=== PATIENT | female | born 1950 | race Caucasian/White ===

== ENCOUNTER 2023-11-30 03:46 | Inpatient (IN) | payer MEDICARE, SELFPAY ==
[2023-11-30] VITALS (105 sets, daily range): BP systolic 99–185; BP diastolic 61–113; PULSE 85–119; RESP 12–36; TEMP 36.4–37.9; O2SAT 83–100; BMI 22.8
--- NOTE | 2023-11-30 03:47 | XRR_ITS ---
PROCEDURE INFORMATION: Exam: XR Chest Exam date and time: 11/30/2023 3:58 AM Age: 73 years old Clinical indication: Cough and fever; Additional info: Fever, cough TECHNIQUE: Imaging protocol: Radiologic exam of the chest. Views: 1 view. COMPARISON: No relevant prior studies available. FINDINGS: Lungs: Unremarkable. No consolidation. Pleural spaces: Unremarkable. No pleural effusion. No pneumothorax. Heart/Mediastinum: Unremarkable. No cardiomegaly. Bones/joints: Unremarkable. XR/XR chest 1V portable [id number] IMPRESSION: No acute findings.
--- NOTE | 2023-11-30 03:50 | ED_ITS ---
Documented by User: Esperanza Talavera MD 11/30/23 04:53 HPI - SOB/Dyspnea 2 General: Chief Complaint: Nausea/Vomiting/Diarrhea Stated Complaint: N/V/FEVER Time Seen by Provider: 11/30/23 03:47 History of Present Illness: HPI Narrative: 73-year-old female presents emergency ro om from half-way. Apparently she been coughing and having some nausea and vomiting today. There is report of fever. She has been short of breath. She is coughing on presentation. She seems slightly confused. Related Data Home Medications Medication Instructions Recorded Confirmed albuterol sulfate 90 mcg/actuation 90 mcg inhalation PRN 11/30/23 11/30/23 aerosol inhaler esomeprazole magnesium 40 mg 40 mg PO DAILY 11/30/23 11/30/23 capsule,delayed release tizanidine 2 mg tablet 2 mg PO TID 11/30/23 11/30/23 Allergies Allergy/AdvReac Type Severity Reaction Status Date / Time No Known Allergies Allergy Verified 11/30/23 03:52 Review of Systems 2 Narrative: Constitutional symptoms: Negative except as documented in HPI. Skin symptoms: Negative except as documented in HPI. Eye symptoms: Negative except as documented in HPI. ENMT symptoms: Negative except as documented in HPI. Respiratory symptoms: Negative except as documented in HPI. Cardiovascular symptoms: Negative except as documented in HPI. Gastrointestinal symptoms: Negative except as documented in HPI. Genitourinary symptoms: Negative except as documented in HPI. Musculoskeletal symptoms: Negative except as documented in HPI. Neurologic symptoms: Negative except as documented in HPI. Psychiatric symptoms: Negative except as documented in HPI. Endocrine symptoms: Negative except as documented in HPI. Physical Exam 2 Narrative: EXAM NARRATIVE: General: Patient is a bit somnolent and slightly confused. Skin: Warm, dry. Head: Normocephalic, atraumatic. Neck: Supple, trachea midline. Eye: Extraocular movements are intact. Ears, nose, mouth and throat: mucosa moist. Cardiovascular: Regular, Normal peripheral perfusion. Respiratory: Lungs are clear to auscultation, respirations are non-labored, breath sounds are equal, Symmetrical chest wall expansion. Gastrointestinal: Soft, Nontender, Non distended Musculoskeletal: Normal ROM, no deformity. Neurological: Somnolent, No focal neurological deficit observed. Psychiatric: Unable to assess. Slightly confused. Course 2 Vital Signs: Vital signs: Vital Signs Temperature 97.6 F 11/30/23 03:47 Pulse Rate 91 11/30/23 07:12 Respiratory Rate 18 11/30/23 03:47 Blood Pressure 161/65 11/30/23 07:12 Pulse Oximetry 93 11/30/23 07:12 Oxygen Delivery Me thod Room Air 11/30/23 05:45 MDM - SOB/Dyspnea Medical Decision Making Medical decision making: Differential diagnosis for patient presenting with generalized weakness and altered mental status including but not limited to and based on the above HPI, review of systems and physical exam: Sepsis. Dehydration. Renal failure. Electrolyte abnormalities. Anemia. Congestive heart failure. Hypotension. Coronary syndrome. Hepatitis. Cirrhosis. Infections such as pneumonia, urinary tract infection, Tick bourne illness, Cellulitis, Viral infections including influenza and Covid-19. Workup: labwork and lab/exam driven imaging ordered to evaluate, rule in and rule out above pathologies. Chest x-ray: Slightly hyperexpanded and a little bit rotated but I do not see any obvious focal infiltrates. This was reviewed and interpreted by myself the emergency room physician. CT head: No acute intracranial process. no intracranial hemorrhage, no evidence of infarct. no evidence of acute fracture.This was reviewed and interpreted by myself the ER physician. Lab Review: Laboratory results were reviewed and interpreted by myself the emergency room physician. Slightly leukopenic with white count 3. Hemoglobin is 12. Platelets are little low at 82 as well. No renal failure. BUN/creatinine are 14 and 0.6. Lipase is normal at 41. Patient does have a urinary tract infection. 2 L normal saline bolus and IV Rocephin in the emergency room. IV Zofran as well. Patient care transitioned to Dr. Hayes at shift change. Lab Data 11/30/23 04:06 11/30/23 04:06 Labs/Radiology: Radiology Impressions Chest X-Ray 11/30/23 03:47 IMPRESSION: No acute findings. Head CT 11/30/23 03:58 IMPRESSION: 1. No acute intracranial findings. 2. Scattered white matter disease, likely secondary to chronic microvascular change. 3. Incidental findings as above. Abdomen/Pelvis CT 11/30/23 04:52 IMPRESSION: 1. Severe colonic stool burden, correlate with constipation. 2. Otherwise, no acute abdominal findings. 3. Findings compatible with cirrhosis and portal hypertension, status post tips (difficult to comment on the patency of the shunt). COMMENTS: Consistent with the [employer]'s Incidental Findings Committee white paper (J [employer] [facility] [employer]iol 2018): Any incidental renal lesion less than 1 cm or classified as too small to characterize, or any incidental cystic renal lesion characterized as simple-appearing, is likely benign. No follow-up imaging is recommended for these lesions per consensus recommendations based on imaging criteria. Laboratory Results WBC 3.17 10^3/uL (3.29-11.43) L 11/30/23 04:06 RBC 3.61 10^6/uL (3.85-5.65) L 11/30/23 04:06 Hgb 12.70 g/dL (11.27-16.99) 11/30/23 04:06 Hct 36.5 % (36-47) 11/30/23 04:06 MCV 101.1 fl (85-98) H 11/30/23 04:06 MCH 35.2 pg (27-33) H 11/30/23 04:06 MCHC 34.8 g/dL (30-55) 11/30/23 04:06 RDW 13.8 % (12.1-15.1) 11/30/23 04:06 Plt Count 82 10^3/cmm (157-399) L 11/30/23 04:06 MPV 10.0 fL (7.4-10.4) 11/30/23 04:06 Neut % (Auto) 53.6 % 11/30/23 04:06 Lymph % (Auto) 28.7 % 11/30/23 04:06 [place] % (Auto) 11.4 % 11/30/23 04:06 Eos % (Auto) 5.7 % 11/30/23 04:06 Baso % (Auto) 0.3 % 11/30/23 04:06 Neut # (Auto) 1.70 10^3/uL (1.8-7.7) L 11/30/23 04:06 Lymph # (Auto) 0.9 10^3/uL (0.8-4.8) 11/30/23 04:06 [place] # (Auto) 0.4 10^3/uL (0.2-0.9) 11/30/23 04:06 Eos # (Auto) 0.2 10^3/uL (0.0-0.8) 11/30/23 04:06 Baso # (Auto) 0.0 10^3/uL (0.0-0.1) 11/30/23 04:06 Nucleated RBC % (auto) 0 % 11/30/23 04:06 Nucleated RBCs # 0.0 /100WBC 11/30/23 04:06 Specimen Type Arterial 11/30/23 04:04 Sample Site Radial, right 11/30/23 04:04 ABG pH 7.45 (7.35-7.45) 11/30/23 04:04 ABG pCO2 27.8 mmHg (35-45) L 11/30/23 04:04 ABG pO2 68.5 mmHg (80.0-100.0) L 11/30/23 04:04 ABG HCO3 19.5 mmol/L (22-26) L 11/30/23 04:04 ABG O2 Saturation 95.2 11/30/23 04:04 ABG Base Excess -3.2 mmol/L (-2.0-2.0) L 11/30/23 04:04 Alban Test Pos 11/30/23 04:04 A-a O2 Gradient 5.9 mmHg (5-10) 11/30/23 04:04 Hematocrit 37.6 % (37-47) 11/30/23 04:04 Hgb O2 Saturation 93.3 % (95-100) L 11/30/23 04:04 Carboxyhemoglobin 2.0 %THgb (0.4-20.1) 11/30/23 04:04 Methemoglobin 0.0 % (0.4-1.5) L 11/30/23 04:04 Total Hemoglobin 12.3 g/dL (12-16) 11/30/23 04:04 Sodium 147.0 mmol/L (131-143) H 11/30/23 04:04 Potassium 4.0 mmol/L (3.5-5.0) 11/30/23 04:04 Glucose 109.0 mg/dL (70-115) 11/30/23 04:04 Ionized Calcium 1.3 mmol/L (1.1-1.4) 11/30/23 04:04 O2 Delivery Device None 11/30/23 04:04 Tire Tester ID Cl 11/30/23 04:04 Sodium 143 mmol/L (136-145) 11/30/23 04:06 Potassium 4.3 mmol/L (3.5-5.1) 11/30/23 04:06 Chloride 112 mmol/L (98-107) H 11/30/23 04:06 Carbon Dioxide 19 mmol/L (22-29) L 11/30/23 04:06 Anion Gap 16.3 (5-19) 11/30/23 04:06 BUN 14 mg/dL (8-23) 11/30/23 04:06 Creatinine 0.6 mg/dL (0.5-0.9) 11/30/23 04:06 GFR Calculation Not Reportable 11/30/23 04:06 Glucose 109 mg/dL (65-115) 11/30/23 04:06 Calculated Osmolality 297 mOsm/kg (285-295) H 11/30/23 04:06 Lactic Acid 1.7 mmol/L (0.5-2.2) 11/30/23 04:06 Calcium 9.8 mg/dL (8.5-10.5) 11/30/23 04:06 Total Bilirubin 2.8 mg/dL (0.15-1.2) H 11/30/23 04:06 AST 24 U/L (0-32) 11/30/23 04:06 ALT 14 U/L (0-33) 11/30/23 04:06 Alkaline Phosphatase 56 U/L (35-105) 11/30/23 04:06 Ammonia 141 umol/L (11-51) H 11/30/23 07:11 C-Reactive Protein 3.0 mg/L (0.0-4.9) 11/30/23 04:06 Total Protein 6.9 g/dL (6.6-8.7) 11/30/23 04:06 Albumin 3.8 g/dL (3.5-5.2) 11/30/23 04:06 Globulin 3.1 g/dL (1.3-4.6) 11/30/23 04:06 Lipase 41 U/L (13-60) 11/30/23 04:06 Procalcitonin 0.07 ng/mL (0-0.5) 11/30/23 04:06 Urine Color Dark yellow (Yellow) A 11/30/23 04:18 Urine Appearance Cloudy (CLEAR) A 11/30/23 04:18 Urine pH 7.5 (5-7) 11/30/23 04:18 Ur Specific [place] 1.025 (1.005-1.030) 11/30/23 04:18 Urine Protein Trace (Negative) A 11/30/23 04:18 Urine Glucose (UA) Negative (Normal) 11/30/23 04:18 Urine Ketones Trace (Negative) 11/30/23 04:18 Urine Blood Negative (Negative) 11/30/23 04:18 Urine Nitrate Negative (Negative) 11/30/23 04:18 Urine Bilirubin 1+ (Negative) H 11/30/23 04:18 Urine Urobilinogen 4.0 mg/dL (Negative) H 11/30/23 04:18 Ur Leukocyte Esterase 1+ (Negative) A 11/30/23 04:18 Urine RBC 11-20 /hpf (0-2) H 11/30/23 04:18 Urine WBC 21-50 /hpf (0-5) H 11/30/23 04:18 Ur Squamous Epith Cells 11-20 /hpf (0-5) 11/30/23 04:18 Amorphous Sediment Not Reportable 11/30/23 04:18 Urine Bacteria 2+ /hpf (NONE) H 11/30/23 04:18 Hyaline Casts 2.46 /lpf 11/30/23 04:18 Coronavirus (PCR) Negative (Negative) 11/30/23 04:06 Influenza A (PCR) Negative (Negative) 11/30/23 04:06 Influenza Type B (PCR) Negative (Negative) 11/30/23 04:06 RSV (PCR) Negative (Negative) 11/30/23 04:06 Discharge Plan Discharge Patient Disposition: Admitted As Inpatient Clinical Impression: Acute hepatic encephalopathy, Cystitis Condition: Stable Prescriptions: No Action tizanidine 2 mg Tablet 2 mg PO TID albuterol sulfate 90 mcg/actuation HFA aerosol inhaler 90 mcg INHALATION PRN esomeprazole magnesium 40 mg Capsule,Delayed Release(Dr/Ec) 40 mg PO DAILY Sign Out Sign Out Data: Patient Sign Out occurred on 11/30/23 at 05:03. Patient's care was discussed, and care was transferred from Esperanza Talavera MD to Johnny Hayes DO. Coding Level of Care Code ED Film Editor for Chg Fwd Documented by User: Johnny Hayes DO 11/30/23 09:11 HPI - SOB/Dyspnea 2 General: Chief Complaint: Nausea/Vomiting/Diarrhea Stated Complaint: N/V/FEVER Time Seen by Provider: 11/30/23 03:47 Related Data Home Medications Medication Instructions Recorded Confirmed albuterol sulfate 90 mcg/actuation 90 mcg inhalation PRN 11/30/23 11/30/23 aerosol inhaler esomeprazole magnesium 40 mg 40 mg PO DAILY 11/30/23 11/30/23 capsule,delayed release tizanidine 2 mg tablet 2 mg PO TID 11/30/23 11/30/23 Allergies Allergy/AdvReac Type Severity Reaction Status Date / Time No Known Allergies Allergy Verified 11/30/23 03:52 Course 2 Vital Signs: Vital signs: Vital Signs Temperature 97.6 F 11/30/23 03:47 Pulse Rate 91 11/30/23 07:12 Respiratory Rate 18 11/30/23 03:47 Blood Pressure 161/65 11/30/23 07:12 Pulse Oximetry 93 11/30/23 07:12 Oxygen Delivery Me thod Room Air 11/30/23 05:45 MDM - SOB/Dyspnea Medical Decision Making Medical decision making: Differential diagnosis for patient presenting with generalized weakness and altered mental status including but not limited to and based on the above HPI, review of systems and physical exam: Sepsis. Dehydration. Renal failure. Electrolyte abnormalities. Anemia. Congestive heart failure. Hypotension. Coronary syndrome. Hepatitis. Cirrhosis. Infections such as pneumonia, urinary tract infection, Tick bourne illness, Cellulitis, Viral infections including influenza and Covid-19. Workup: labwork and lab/exam driven imaging ordered to evaluate, rule in and rule out above pathologies. Chest x-ray: Slightly hyperexpanded and a little bit rotated but I do not see any obvious focal infiltrates. This was reviewed and interpreted by myself the emergency room physician. CT head: No acute intracranial process. no intracranial hemorrhage, no evidence of infarct. no evidence of acute fracture.This was reviewed and interpreted by myself the ER physician. Lab Review: Laboratory results were reviewed and interpreted by myself the emergency room physician. Slightly leukopenic with white count 3. Hemoglobin is 12. Platelets are little low at 82 as well. No renal failure. BUN/creatinine are 14 and 0.6. Lipase is normal at 41. Patient does have a urinary tract infection. 2 L normal saline bolus and IV Rocephin in the emergency room. IV Zofran as well. Patient care transitioned to Dr. Hayes at shift change. Care assumed at change of shift. Labs and imaging reviewed. Patient has cystitis that is encephalopathic with an elevated ammonia level and constipation suspect she has not had her lactulose for several days. Discussed Dr. Nicolas will admit cultures have been done antibiotics started. Lab Data 11/30/23 04:06 11/30/23 04:06 Labs/Radiology: Radiology Impressions Chest X-Ray 11/30/23 03:47 IMPRESSION: No acute findings. Head CT 11/30/23 03:58 IMPRESSION: 1. No acute intracranial findings. 2. Scattered white matter disease, likely secondary to chronic microvascular change. 3. Incidental findings as above. Abdomen/Pelvis CT 11/30/23 04:52 IMPRESSION: 1. Severe colonic stool burden, correlate with constipation. 2. Otherwise, no acute abdominal findings. 3. Findings compatible with cirrhosis and portal hypertension, status post tips (difficult to comment on the patency of the shunt). COMMENTS: Consistent with the [employer]'s Incidental Findings Committee white paper (J [employer] [facility] [employer]iol 2018): Any incidental renal lesion less than 1 cm or classified as too small to characterize, or any incidental cystic renal lesion characterized as simple-appearing, is likely benign. No follow-up imaging is recommended for these lesions per consensus recommendations based on imaging criteria. Laboratory Results WBC 3.17 10^3/uL (3.29-11.43) L 11/30/23 04:06 RBC 3.61 10^6/uL (3.85-5.65) L 11/30/23 04:06 Hgb 12.70 g/dL (11.27-16.99) 11/30/23 04:06 Hct 36.5 % (36-47) 11/30/23 04:06 MCV 101.1 fl (85-98) H 11/30/23 04:06 MCH 35.2 pg (27-33) H 11/30/23 04:06 MCHC 34.8 g/dL (30-55) 11/30/23 04:06 RDW 13.8 % (12.1-15.1) 11/30/23 04:06 Plt Count 82 10^3/cmm (157-399) L 11/30/23 04:06 MPV 10.0 fL (7.4-10.4) 11/30/23 04:06 Neut % (Auto) 53.6 % 11/30/23 04:06 Lymph % (Auto) 28.7 % 11/30/23 04:06 [place] % (Auto) 11.4 % 11/30/23 04:06 Eos % (Auto) 5.7 % 11/30/23 04:06 Baso % (Auto) 0.3 % 11/30/23 04:06 Neut # (Auto) 1.70 10^3/uL (1.8-7.7) L 11/30/23 04:06 Lymph # (Auto) 0.9 10^3/uL (0.8-4.8) 11/30/23 04:06 [place] # (Auto) 0.4 10^3/uL (0.2-0.9) 11/30/23 04:06 Eos # (Auto) 0.2 10^3/uL (0.0-0.8) 11/30/23 04:06 Baso # (Auto) 0.0 10^3/uL (0.0-0.1) 11/30/23 04:06 Nucleated RBC % (auto) 0 % 11/30/23 04:06 Nucleated RBCs # 0.0 /100WBC 11/30/23 04:06 Specimen Type Arterial 11/30/23 04:04 Sample Site Radial, right 11/30/23 04:04 ABG pH 7.45 (7.35-7.45) 11/30/23 04:04 ABG pCO2 27.8 mmHg (35-45) L 11/30/23 04:04 ABG pO2 68.5 mmHg (80.0-100.0) L 11/30/23 04:04 ABG HCO3 19.5 mmol/L (22-26) L 11/30/23 04:04 ABG O2 Saturation 95.2 11/30/23 04:04 ABG Base Excess -3.2 mmol/L (-2.0-2.0) L 11/30/23 04:04 Alban Test Pos 11/30/23 04:04 A-a O2 Gradient 5.9 mmHg (5-10) 11/30/23 04:04 Hematocrit 37.6 % (37-47) 11/30/23 04:04 Hgb O2 Saturation 93.3 % (95-100) L 11/30/23 04:04 Carboxyhemoglobin 2.0 %THgb (0.4-20.1) 11/30/23 04:04 Methemoglobin 0.0 % (0.4-1.5) L 11/30/23 04:04 Total Hemoglobin 12.3 g/dL (12-16) 11/30/23 04:04 Sodium 147.0 mmol/L (131-143) H 11/30/23 04:04 Potassium 4.0 mmol/L (3.5-5.0) 11/30/23 04:04 Glucose 109.0 mg/dL (70-115) 11/30/23 04:04 Ionized Calcium 1.3 mmol/L (1.1-1.4) 11/30/23 04:04 O2 Delivery Device None 11/30/23 04:04 Tire Tester ID Cl 11/30/23 04:04 Sodium 143 mmol/L (136-145) 11/30/23 04:06 Potassium 4.3 mmol/L (3.5-5.1) 11/30/23 04:06 Chloride 112 mmol/L (98-107) H 11/30/23 04:06 Carbon Dioxide 19 mmol/L (22-29) L 11/30/23 04:06 Anion Gap 16.3 (5-19) 11/30/23 04:06 BUN 14 mg/dL (8-23) 11/30/23 04:06 Creatinine 0.6 mg/dL (0.5-0.9) 11/30/23 04:06 GFR Calculation Not Reportable 11/30/23 04:06 Glucose 109 mg/dL (65-115) 11/30/23 04:06 Calculated Osmolality 297 mOsm/kg (285-295) H 11/30/23 04:06 Lactic Acid 1.7 mmol/L (0.5-2.2) 11/30/23 04:06 Calcium 9.8 mg/dL (8.5-10.5) 11/30/23 04:06 Total Bilirubin 2.8 mg/dL (0.15-1.2) H 11/30/23 04:06 AST 24 U/L (0-32) 11/30/23 04:06 ALT 14 U/L (0-33) 11/30/23 04:06 Alkaline Phosphatase 56 U/L (35-105) 11/30/23 04:06 Ammonia 141 umol/L (11-51) H 11/30/23 07:11 C-Reactive Protein 3.0 mg/L (0.0-4.9) 11/30/23 04:06 Total Protein 6.9 g/dL (6.6-8.7) 11/30/23 04:06 Albumin 3.8 g/dL (3.5-5.2) 11/30/23 04:06 Globulin 3.1 g/dL (1.3-4.6) 11/30/23 04:06 Lipase 41 U/L (13-60) 11/30/23 04:06 Procalcitonin 0.07 ng/mL (0-0.5) 11/30/23 04:06 Urine Color Dark yellow (Yellow) A 11/30/23 04:18 Urine Appearance Cloudy (CLEAR) A 11/30/23 04:18 Urine pH 7.5 (5-7) 11/30/23 04:18 Ur Specific [place] 1.025 (1.005-1.030) 11/30/23 04:18 Urine Protein Trace (Negative) A 11/30/23 04:18 Urine Glucose (UA) Negative (Normal) 11/30/23 04:18 Urine Ketones Trace (Negative) 11/30/23 04:18 Urine Blood Negative (Negative) 11/30/23 04:18 Urine Nitrate Negative (Negative) 11/30/23 04:18 Urine Bilirubin 1+ (Negative) H 11/30/23 04:18 Urine Urobilinogen 4.0 mg/dL (Negative) H 11/30/23 04:18 Ur Leukocyte Esterase 1+ (Negative) A 11/30/23 04:18 Urine RBC 11-20 /hpf (0-2) H 11/30/23 04:18 Urine WBC 21-50 /hpf (0-5) H 11/30/23 04:18 Ur Squamous Epith Cells 11-20 /hpf (0-5) 11/30/23 04:18 Amorphous Sediment Not Reportable 11/30/23 04:18 Urine Bacteria 2+ /hpf (NONE) H 11/30/23 04:18 Hyaline Casts 2.46 /lpf 11/30/23 04:18 Coronavirus (PCR) Negative (Negative) 11/30/23 04:06 Influenza A (PCR) Negative (Negative) 11/30/23 04:06 Influenza Type B (PCR) Negative (Negative) 11/30/23 04:06 RSV (PCR) Negative (Negative) 11/30/23 04:06 All radiology interpretation(s) finalized by discharge Discharge Plan Discharge Patient Disposition: Admitted As Inpatient Clinical Impression: Acute hepatic encephalopathy, Cystitis Condition: Stable Prescriptions: No Action tizanidine 2 mg Tablet 2 mg PO TID albuterol sulfate 90 mcg/actuation HFA aerosol inhaler 90 mcg INHALATION PRN esomeprazole magnesium 40 mg Capsule,Delayed Release(Dr/Ec) 40 mg PO DAILY Sign Out Sign Out Data: Patient Sign Out occurred on 11/30/23 at 05:03. Patient's care was discussed, and care was transferred from Esperanza Talavera MD to Johnny Hayes DO. Coding Level of Care Code ED Film Editor for Malgorzata Avery
--- NOTE | 2023-11-30 03:58 | CTR_ITS ---
PROCEDURE INFORMATION: Exam: CT Head Without Contrast Exam date and time: 11/30/2023 4:21 AM Age: 73 years old Clinical indication: Altered mental status/memory loss; Additional info: Encephalopathy, altered mental status TECHNIQUE: Imaging protocol: Computed tomography of the head without contrast. Radiation optimization: All CT scans at this facility use at least one of these dose optimization techniques: automated exposure control; mA and/or kV adjustment per patient size (includes targeted exams where dose is matched to clinical indication); or iterative reconstruction. COMPARISON: No relevant prior studies available. RADIATION DOSE METRICS: Total DLP (mGy-cm): 1107.58 FINDINGS: Brain: Regions of subcortical and periventricular white matter change, nonspecific, likely secondary to chronic microvascular disease. Pineal gland calcifications. Intracranial calcified atherosclerotic disease. Cerebral ventricles: Choroid plexus calcifications. Paranasal sinuses: Visualized sinuses are unremarkable. No fluid levels. Mastoid air cells: Visualized mastoid air cells are well aerated. Bones: Unremarkable. No acute fracture. Soft tissues: Unremarkable. CT/CT head wo con* [id number] IMPRESSION: 1. No acute intracranial findings. 2. Scattered white matter disease, likely secondary to chronic microvascular change. 3. Incidental findings as above.
[2023-11-30 04:10] LABS: ABG PCO2 27.8 mmHg (35-45); ABG PH Result 7.45 (7.35-7.45); Alveolar-Arterial Oxygen Gradi 5.9 mmHg (5-10); Arterial Blood Gas Hematocrit 37.6 % (37-47); Base Excess ABG -3.2 mmol/L (-2.0-2.0); Blood Gas Allen Test Pos; Blood Gas Sample Type Arterial; HCO3 ABG 19.5 mmol/L (22-26); HGB O2 Sat 93.3 % (95-100); Ionized Calcium Level - ABG 1.3 mmol/L (1.1-1.4); Oxygen Saturation ABG 95.2; PO2 ABG 68.5 mmHg (80.0-100.0); Total Hemoglobin 12.3 g/dL (12-16)
[2023-11-30 04:11] LABS: Blood Gas Operator Identificat CL; Blood Gas Sample Site Radial, right
[2023-11-30 04:13] LABS: Basophils % 0.3 %; Eosinophils # 0.2 10^3/uL (0.0-0.8); Eosinophils % 5.7 %; Hematocrit 36.5 % (36-47); Lymphocytes # 0.9 10^3/uL (0.8-4.8); Lymphocytes % 28.7 %; Mean Corpuscular HGB Conc 34.8 g/dL (30-55); Mean Corpuscular Hemoglobin 35.2 pg (27-33); Mean Corpuscular Volume 101.1 fl (85-98); Monocytes # 0.4 10^3/uL (0.2-0.9); Monocytes % 11.4 %; Neutrophils % 53.6 %; Nucleated Red Blood Cells % 0 %; Platelet Count 82 10^3/cmm (157-399); Red Blood Count 3.61 10^6/uL (3.85-5.65); Red Cell Distribution Width 13.8 % (12.1-15.1); White Blood Count 3.17 10^3/uL (3.29-11.43)
[2023-11-30 04:27] LABS: Bilirubin Urine 1+ (Negative); Blood Urine Negative (Negative); Glucose Urine UA Negative (Normal); Ketones Urine Trace (Negative); Leukocyte Esterase Urine 1+ (Negative); Nitrate Urine Negative (Negative); Protein Urine Trace (Negative); Specific Gravity, Urine 1.025 (1.005-1.030); Urine Appearance Cloudy (CLEAR); Urine Color Dark Yellow (Yellow); pH Urine 7.5 (5-7)
[2023-11-30] MEDS: ondansetron 2 mg/ML SDV 2 mL 8 MG IVP (04:30)
[2023-11-30] MEDS: sodium chloride 0.9% 1,000 ML 999 ML IV ×2 (04:30→05:31)
[2023-11-30 04:32] LABS: Bacteria Urine 2+ /hpf; Hyaline Casts Urine 2.46 /lpf; WBC Urine 21-50 /hpf (0-5)
[2023-11-30 04:34] LABS: Alanine Aminotransferase 14 U/L (0-33); Albumin Level 3.8 g/dL (3.5-5.2); Alkaline Phosphatase 56 U/L (35-105); Anion Gap 16.3 (5-19); Aspartate Amino Transferase 24 U/L (0-32); Blood Urea Nitrogen 14 mg/dL (8-23); Calcium 9.8 mg/dL (8.5-10.5); Carbon Dioxide 19 mmol/L (22-29); Chloride 112 mmol/L (98-107); Creatinine Clr Calc Pharmacy 52.1444; Globulin 3.1 g/dL (1.3-4.6); Glucose 109 mg/dL (65-115); Lipase 41 U/L (13-60); Osmolality Calculated 297 mOsm/kg (285-295); Potassium 4.3 mmol/L (3.5-5.1); Sodium 143 mmol/L (136-145); Total Bilirubin 2.8 mg/dL (0.15-1.2); Total Protein 6.9 g/dL (6.6-8.7)
[2023-11-30 04:35] LABS: Lactic Sepsis W/Reflex 1.7 mmol/L (0.5-2.2)
[2023-11-30 04:40] LABS: Procalcitonin 0.07 ng/mL (0-0.5)
[2023-11-30 04:51] LABS: Covid PCR NEGATIVE (Negative); Influenza A NEGATIVE (Negative); Influenza B NEGATIVE (Negative); Respiratory Syncytial Virus Ce NEGATIVE (Negative)
--- NOTE | 2023-11-30 04:52 | CTR_ITS ---
PROCEDURE INFORMATION: Exam: CT Abdomen And Pelvis With Contrast Exam date and time: 11/30/2023 5:07 AM Age: 73 years old Clinical indication: Nausea and vomiting; Additional info: Abdominal pain TECHNIQUE: Imaging protocol: Computed tomography of the abdomen and pelvis with contrast. Radiation optimization: All CT scans at this facility use at least one of these dose optimization techniques: automated exposure control; mA and/or kV adjustment per patient size (includes targeted exams where dose is matched to clinical indication); or iterative reconstruction. Contrast material: [id number]; Contrast volume: 100 ml; Contrast route: INTRAVENOUS (IV); COMPARISON: CR (CHEST, ) 11/30/2023 3:58 AM RADIATION DOSE METRICS: Total DLP (mGy-cm): 479.06 FINDINGS: Lungs: Basilar scarring/atelectasis. Heart: Base of heart is unremarkable as visualized. Coronary arteries: Atherosclerotic disease of the visualized coronary vasculature, moderate. Liver: Status post TIPS. Findings compatible with cirrhosis. Gallbladder and biliary ducts: Normal. No calcified stones. No ductal dilation. Pancreas: Normal. No ductal dilation. Spleen: Splenomegaly is noted. Adrenal glands: Normal. No mass. Kidneys and ureters: Benign right renal cysts, a few small right renal hypodensities too small to characterize by modality, statistically likely to represent benign etiology. Stomach and bowel: Postprocedural changes of the pelvic large bowel. Severe colonic stool burden. Fecalization of small bowel which can be seen in slow transit. Appendix: Appendix is not readily identified, no secondary evidence for appendicitis. Intraperitoneal space: Unremarkable. No free air. No significant fluid collection. Vasculature: Atherosclerotic disease, moderate to severe. No significant arterial stenosis. Portal vein is enlarged and measures up to 2.2 cm. Lymph nodes: Unremarkable. No enlarged lymph nodes. Urinary bladder: Unremarkable as visualized. Reproductive: Status post hysterectomy. Bones/joints: Diffuse degenerative change of the visualized osseous structures. Soft tissues: Unremarkable. CT/CT abdomen pelvis w con* [id number] IMPRESSION: 1. Severe colonic stool burden, correlate with constipation. 2. Otherwise, no acute abdominal findings. 3. Findings compatible with cirrhosis and portal hypertension, status post tips (difficult to comment on the patency of the shunt). COMMENTS: Consistent with the [employer]'s Incidental Findings Committee white paper (J Am [facility] [employer]iol 2018): Any incidental renal lesion less than 1 cm or classified as too small to characterize, or any incidental cystic renal lesion characterized as simple-appearing, is likely benign. No follow-up imaging is recommended for these lesions per consensus recommendations based on imaging criteria.
[2023-11-30 05:18] LABS: Add Urine Culture? No
[2023-11-30] MEDS: cefTRIAXone 1,000 mg SDV 1000 MG IVP (05:31)
[2023-11-30] MEDS: iohexol 350 mg/mL 500 mL Btl (per mL) IV (05:33)
[2023-11-30 07:45] LABS: Ammonia 141 umol/L (11-51)
--- NOTE | 2023-11-30 09:37 | PM.HP ---
Documented by User: Abril Cabrera LEX STD 11/30/23 10:58 Providers/Chief Complaint Admitting Physician: Sanjiv Nicolas MD Primary Care Provider: Leena Jones Chief Complaint: fever ams History of Present Illness Vaishali Mendez is a 73 year old female with PMH of COPD, Colon cancer, GERD, cirrhosis with Hep C diagnosis and TIPs placement 6 months ago representing with confusion, constipation, shaking, chills, high ammonia levels, high BP, and history of fever. Patient is actively shaking on exam and struggles to find the words to answer questions. Patient U/A was positive for UTI, will start treatment. Patient is coughing, has diffuse abdominal pain on palpation, and increased effort of breathing. Patient has either dried vomit or dried phlegm on shirt, unsure at this time. Patient has smoked in the pasted, current status is unknown, and has histry of alcohol and drugs use. Patient does not have signs of ascites, LE edema, palmar erythma, or asterisix. Patient does have a lesion on anterior nose that may be a scratch or skin cancer. Patient's surgical history was not able to be obtained from patient, PMH was obtained from granddaughter via phone. Review of Systems General: Reports: Other (Negative unless stated above) Resp: Reports: dyspnea and productive cough GI: Reports: abdominal pain Neuro: Reports: confusion Medications/Allergies Home Medications Medication Instructions Recorded Confirmed Last Taken Type albuterol sulfate 90 mcg/actuation 90 mcg inhalation PRN 11/30/23 11/30/23 Unknown History aerosol inhaler esomeprazole magnesium 40 mg 40 mg PO DAILY 11/30/23 11/30/23 11/29/23 History capsule,delayed release tizanidine 2 mg tablet 2 mg PO TID 11/30/23 11/30/23 11/29/23 History Allergies Allergy/AdvReac Type Severity Reaction Status Date / Time No Known Allergies Allergy Verified 11/30/23 03:52 PFSH Acute PFSH: Medical History History of drug use Tobacco dependency GERD (gastroesophageal reflux disease) Hepatitis C Colon cancer COPD (chronic obstructive pulmonary disease) Cirrhosis Surgical History S/P TIPS (transjugular intrahepatic portosystemic shunt) Social History Smoking and tobacco/nicotine status: tobacco/nicotine user, details unknown Alcohol intake: former Substance/Drug Use: former Vitals/I&O/Wt Last Vital Signs Temp 97.6 F 11/30/23 03:47 Pulse 91 11/30/23 07:12 Resp 18 11/30/23 03:47 BP 161/65 11/30/23 07:12 Pulse Ox 93 11/30/23 07:12 O2 Del Method Room Air 11/30/23 05:45 Weight last 48 hrs Weight 125 lb Physical Exam Narrative: Shaking on exam and struggles to find the words to answer questions. HENMT: OTHER: Scabbed over lesion on anterior nose Eye: OTHER: Anicteric conjunctiva Neck/C-Spine: OTHER: Supple without thyromegaly Resp: OTHER: Bilateral coarse breath sounds. Increased effort of breathing. Normal chest wall expansion. Cardio: OTHER: Normal rate and rhythm without murmurs, gallops, or rubs GI: OTHER: Soft, Non-distended, Diffusely tender on palpation with bowel sounds. No signs of ascites Extremity: NARRATIVE EXTREMITY EXAM: No edema or cyanosis Data 11/30/23 04:06 11/30/23 04:06 Micro: Microbiology 11/30/23 04:06 Blood Culture - Preliminary Blood SPECIMEN COLLECTED 11/30/23 04:04 Blood Culture - Preliminary Blood SPECIMEN COLLECTED A&P Assessment and plan (1) Hepatic encephalopathy: Patient displays confusion and increased effort of breathing Patient is not apparently on lactulose, I suspect she was on it and for some reason it was not continued at intermediate. Perhaps she did not relay this was even needed. Ammonia levels are elevated, give lactulose 30ml TID 2L NS Fluid bolus and IV Rocephin was given in ED, Start IV fluids 100 ml/hr Patient was given IV Zofran for nausea CXR was normal, no signs of pneumonia Head CT showed chronic microvascular change Abdomen/Pelvis CT shows high stool burden and findings consistent with cirrhosis, portal hypertension, post TIPS Normal Lactic acid Negative Covid-PCR Blood and urine cultures ordered Drug screen ordered CBC and CMP tomorrow (2) Constipation: Patient has diffuse abdominal pain on palpation CT shows high stool burden Start patient on lactulose (3) UTI (urinary tract infection): Patient was given IV Rocephin in ED U/A tested positive for bacteria, RBCs, WBCs, leukocyte esterase, and bilirubin Urine culture pending Start patient on IV Zosyn (4) Hyperbilirubinemia: Total Bilirubin is 2.8 Urine positive for bilirubin and urobilinogen Patient has history of cirrhosis with Hep C and TIPS Recheck tomorrow (5) Pancytopenia: Hgb is normal, with low RBC with high MCV, WBC, and platelets Normal folate and vit b12, cirrhosis is likely cause Will continue to monitor as treat acute encephalopathy (6) COPD (chronic obstructive pulmonary disease): Patient is currently at O2 Sat 95% on Room Air, monitor for O2 supplementation need CXR was normal Start Nebulizer Albuterol PRN DuoNebs Budesonide 2x Daily (7) Cirrhosis: CT findings are consistent with cirrhosis with TIPS Unknown cause of cirrhosis, patient does have alcohol history and hep C with unknown treatment regimen. CMP and CBC tomorrow Plan Full code Granddaughter is DPOA Coding Level of Care Code 18565 Diagnoses Hepatic encephalopathy K76.82 Constipation K59.00 UTI (urinary tract infection) N39.0 Hyperbilirubinemia E80.6 Pancytopenia D61.818 COPD (chronic obstructive pulmonary disease) J44.9 Cirrhosis K74.60 Time Spent (min) 55 Documented by User: Sanjiv Nicolas MD 11/30/23 11:00 Providers/Chief Complaint Chief Complaint: fever ams History of Present Illness Vaishali Mendez is a 73 year old female with PMH of COPD, Colon cancer, GERD, cirrhosis with Hep C diagnosis and TIPs placement 6 months ago presenting with confusion, constipation, shaking, chills, high ammonia levels, high BP, and history of fever. History is somewhat difficult but is also augmented by her officer who cares/supervises her at the intermediate where she has been for at least a month. He reports she was doing well until yesterday, and then had some confusion. She was checked by the ambulance crew, and thought to have vital signs that were stable. This morning she seemed more confused, had some vomit on her shirt. He believes she may have had a low-grade temperature, noted by ambulance services around 100.8. No other obvious illness has been noted. History also augmented by granddaughter, who we were able to visit with on the phone. Medications/Allergies Home Medications Medication Instructions Recorded Confirmed Last Taken Type albuterol sulfate 90 mcg/actuation 90 mcg inhalation PRN 11/30/23 11/30/23 Unknown History aerosol inhaler esomeprazole magnesium 40 mg 40 mg PO DAILY 11/30/23 11/30/23 11/29/23 History capsule,delayed release tizanidine 2 mg tablet 2 mg PO TID 11/30/23 11/30/23 11/29/23 History Allergies Allergy/AdvReac Type Severity Reaction Status Date / Time No Known Allergies Allergy Verified 11/30/23 03:52 PFSH Acute PFSH: Medical History History of drug use Tobacco dependency GERD (gastroesophageal reflux disease) Hepatitis C Colon cancer COPD (chronic obstructive pulmonary disease) Cirrhosis Surgical History S/P TIPS (transjugular intrahepatic portosystemic shunt) Social History Smoking and tobacco/nicotine status: tobacco/nicotine user, details unknown Alcohol intake: former Substance/Drug Use: former Physical Exam Narrative: Shaking on exam and struggles to find the words to answer questions. Extremity: NARRATIVE EXTREMITY EXAM: No edema or cyanosis. No palmar erythema or asterixis Data 11/30/23 04:06 11/30/23 04:06 Other data: MCV 101 ABG with a pH of 7.45, pCO2 28, pO2 68 on room air LFTs normal with the exception of bilirubin of 2.8 Ammonia level 141 Lipase normal, albumin normal, calcium normal Urinalysis showing 11-20 reds, 21-50 whites with 2+ bacteria and negative nitrate Viral testing including coronavirus negative Abdomen pelvis CT which I also reviewed and straighter constipation, TIPS catheter, cirrhosis Head CT which I reviewed demonstrated no acute change Chest x-ray which I reviewed demonstrated no infiltrate, some aortic calcification is noted Blood and urine cultures were obtained A&P Assessment and plan (1) Hepatic encephalopathy: Patient displays confusion and increased effort of breathing Patient is not apparently on lactulose, I suspect she was on it and for some reason it was not continued at intermediate. Perhaps she did not relay this was even needed. Ammonia levels are elevated, give lactulose 30ml TIB 2L NS Fluid bolus and IV Rocephin was given in ED, Start IV fluids 100 ml/hr Patient was given IV Zofran for nausea CXR was normal, no signs of pneumonia Head CT showed chronic microvascular change Abdomen/Pelvis CT shows high stool burden and findings consistent with cirrhosis, portal hypertension, post TIPS Normal Lactic acid Negative Covid-PCR Blood and urine cultures ordered Drug screen ordered CBC and CMP tomorrow (2) Constipation: (3) UTI (urinary tract infection): Patient was given IV Rocephin in ED U/A tested positive for bacteria, RBCs, WBCs, leukocyte esterase, and bilirubin Urine culture pending Start patient on IV Zosyn No evidence of urinary obstruction on CT (4) Hyperbilirubinemia: Total Bilirubin is 2.8 Urine positive for bilirubin and urobilinogen Patient has history of cirrhosis with Hep C and TIPS Recheck tomorrow Likely this is chronic (5) Pancytopenia: Hgb is normal, with low RBC with high MCV, WBC, and platelets Normal folate and vit b12, cirrhosis is likely cause Will continue to monitor as treat acute encephalopathy This is most likely related to her cirrhosis (6) COPD (chronic obstructive pulmonary disease): (7) Cirrhosis: Plan Macrocytosis. I ordered a B12 and folate level which was normal. TSH is normal. Full code Granddaughter is DPOA Attestations Medical Necessity Statement*: Will need greater than 2 midnight stay for evaluation and treatment of acute encephalopathy. Diagnoses Hepatic encephalopathy K76.82 Constipation K59.00 UTI (urinary tract infection) N39.0 Hyperbilirubinemia E80.6 Pancytopenia D61.818 COPD (chronic obstructive pulmonary disease) J44.9 Cirrhosis K74.60 Time Spent (min) 55
[2023-11-30 09:50] LABS: Folate Level 15.7 ng/mL (4.8-37.3)
[2023-11-30 09:51] LABS: Magnesium 2.2 mg/dL (1.7-2.3); Thyroid Stimulating Hormone 3.97 uIU/mL (0.27-4.20); Vitamin B12 494 pg/mL (232-1245)
--- NOTE | 2023-11-30 10:03 | PC.NURSE ---
report called to Ron in ICU, no further questions at end of report.
[2023-11-30] MEDS: ipratropium-albuterol 3 mL Neb INHALATION ×2 (11:36→19:18)
[2023-11-30] MEDS: budesonide 0.5 mg/2 mL Neb INHALATION ×2 (11:36→19:18)
[2023-11-30] MEDS: piperacillin-tazobactam 3.375 GM in sodium chloride 0.9% (plus) 50 ML IV ×2 (11:50→18:12)
[2023-11-30] MEDS: lactulose oral liq 20 gm/30 mL UDC 30 GM PO (11:50)
[2023-11-30] MEDS: pantoprazole DR 40 mg Tablet PO (11:50)
[2023-11-30] MEDS: sodium chloride 0.9% 1,000 ML 100 ML IV ×2 (11:53→21:38)
[2023-11-30 20:05] LABS: Amphetamines Screen Urine Negative (Negative); Barbiturates Screen Urine Negative (Negative); Benzodiazepines Screen Urine Negative (Negative); Cocaine Screen Urine Negative (Negative); Opiate Screen Urine Negative (Negative); PCP Screen Urine Negative (Negative); THC Screen Urine Negative (Negative)
--- NOTE | 2023-11-30 22:05 | PC.NURSE ---
Patient refused lactulose as she doesn't want more diarrhea overnight. Will offer dose again at a later time
[2023-12-01] VITALS (42 sets, daily range): BP systolic 146–168; BP diastolic 63–76; PULSE 83–104; RESP 12–35; TEMP 36.8–37.3; O2SAT 93–97
[2023-12-01] MEDS: piperacillin-tazobactam 3.375 GM in sodium chloride 0.9% (plus) 50 ML IV ×2 (05:35→11:52)
[2023-12-01] MEDS: lactulose oral liq 20 gm/30 mL UDC 30 GM PO (05:36)
[2023-12-01 05:55] LABS: Basophils % 0.4 %; Eosinophils # 0.2 10^3/uL (0.0-0.8); Eosinophils % 6.8 %; Hematocrit 29.3 % (36-47); Lymphocytes # 0.9 10^3/uL (0.8-4.8); Lymphocytes % 33.1 %; Mean Corpuscular HGB Conc 33.8 g/dL (30-55); Mean Corpuscular Hemoglobin 34.3 pg (27-33); Mean Corpuscular Volume 101.4 fl (85-98); Mean Platelet Volume 9.8 fL (7.4-10.4); Monocytes # 0.3 10^3/uL (0.2-0.9); Monocytes % 11.5 %; Neutrophils # 1.34 10^3/uL (1.8-7.7); Neutrophils % 48.2 %; Nucleated Red Blood Cells % 0 %; Platelet Count 63 10^3/cmm (157-399); Red Blood Count 2.89 10^6/uL (3.85-5.65); Red Cell Distribution Width 13.8 % (12.1-15.1); White Blood Count 2.78 10^3/uL (3.29-11.43)
[2023-12-01 06:20] LABS: Alanine Aminotransferase 11 U/L (0-33); Albumin Level 3.1 g/dL (3.5-5.2); Alkaline Phosphatase 41 U/L (35-105); Anion Gap 14.3 (5-19); Aspartate Amino Transferase 25 U/L (0-32); Blood Urea Nitrogen 8 mg/dL (8-23); Calcium 8.6 mg/dL (8.5-10.5); Carbon Dioxide 19 mmol/L (22-29); Chloride 115 mmol/L (98-107); Creatinine Clr Calc Pharmacy 52.8567; Globulin 2.3 g/dL (1.3-4.6); Glucose 83 mg/dL (65-115); Magnesium 1.7 mg/dL (1.7-2.3); Osmolality Calculated 297 mOsm/kg (285-295); Potassium 3.3 mmol/L (3.5-5.1); Sodium 145 mmol/L (136-145); Total Bilirubin 2.2 mg/dL (0.15-1.2); Total Protein 5.4 g/dL (6.6-8.7)
--- NOTE | 2023-12-01 07:16 | CTR_ITS ---
PROCEDURE INFORMATION: Exam: CTA Chest With Contrast Exam date and time: 12/01/2023 6:05 PM Age: 73 years old Clinical indication: Other: Hemoptysis TECHNIQUE: Imaging protocol: Computed tomographic angiography of the chest with contrast. Exam focused on the arteries. 3D rendering (Not supervised by radiologist): MIP and/or 3D reconstructed images were created by the technologist. Radiation optimization: All CT scans at this facility use at least one of these dose optimization techniques: automated exposure control; mA and/or kV adjustment per patient size (includes targeted exams where dose is matched to clinical indication); or iterative reconstruction. Contrast material: OMNI 350; Contrast volume: 65 ml; Contrast route: INTRAVENOUS (IV); COMPARISON: CR (CHEST, ) 11/30/2023 3:58 AM RADIATION DOSE METRICS: Total DLP (mGy-cm): 857 FINDINGS: Pulmonary arteries: Normal. No pulmonary emboli. Aorta: Unremarkable. No aortic aneurysm. No aortic dissection. Veins: Portal venous hypertension with enlarged portal and splenic veins. Lungs: Emphysema. Mild dependent atelectasis in the lower lobes. Small intrapulmonary lymph node along the superior left major fissure. No imaging follow-up recommended. The lungs are otherwise clear. Pleural spaces: Unremarkable. No pneumothorax. No pleural effusion. Heart: The heart size is normal. Coronary arteries: Coronary artery calcifications. Lymph nodes: No lymphadenopathy. Liver: Tips stent in place. Cirrhotic liver. Spleen: Splenomegaly. Kidneys: Right renal cyst, Hounsfield units less than 20. No follow-up imaging is recommended. Bones/joints: Moderate L5 compression fracture. Mild degenerative changes in the midthoracic spine. Soft tissues: Unremarkable. CT/CT angio chest PE protcl [id number] IMPRESSION: 1. No evidence of pulmonary embolus. 2. No acute pulmonary findings. 3. Cirrhotic liver with portal venous hypertension. 4. Splenomegaly. COMMENTS: 1. Consistent with the [employer]'s Incidental Findings Committee white paper (J Am Glenis Radiol 2018): Any incidental renal lesion less than 1 cm or classified as too small to characterize, or any incidental cystic renal lesion characterized as simple-appearing, is likely benign. No follow-up imaging is recommended for these lesions per consensus recommendations based on imaging criteria. 2. The presence of pulmonary emphysema on CT is an independent risk factor for lung cancer. In the absence of a history or active diagnosis of lung cancer, it is recommended that this patient with emphysema be evaluated for enrollment in a low dose CT lung cancer screening program.
[2023-12-01] MEDS: sodium chloride 0.9% 1,000 ML 100 ML IV (07:37)
[2023-12-01] MEDS: ipratropium-albuterol 3 mL Neb INHALATION ×2 (08:00→14:02)
[2023-12-01] MEDS: budesonide 0.5 mg/2 mL Neb INHALATION (08:00)
--- NOTE | 2023-12-01 08:34 | PM.PN ---
Documented by User: LEX Salter STDJOSE 12/01/23 09:07 Subjective Subjective: Patient is less confused today and alert. She is able to answering and ask question today, follow commands. Patient is orginally thought she was at [facility], but was able to be redirected that she is at [facility]. Patient reported had 13 bowel movements yesterday and requested to not have another dose of lactulose so she could get some rest last night. Patient says that she has been coughing up some blood streaked sputum but denies any chest pain. Patient had low grade fevers with chills yesterday, but feels better today. Patient denies SOB, abdominal pain, N/V, headache. Vitals/I&O/Wt Last Vital Signs Temp 99.2 F 12/01/23 05:30 Pulse 83 12/01/23 08:00 Resp 20 H 12/01/23 08:00 BP 156/76 12/01/23 05:30 Pulse Ox 93 12/01/23 08:00 O2 Del Method Room Air 12/01/23 08:00 11/30/23 12/01/23 12/01/23 22:59 06:59 14:59 Intake Total 1125 / 3225 120 / 3345 1198.333 / 1198.333 Output Total 220 / 220 840 / 1060 350 / 350 Balance 905 / 3005 -720 / 2285 848.333 / 848.333 Weight last 48 hrs Weight 127 lb 13.89 oz Weight 128 lb 15.527 oz Weight 125 lb Physical Exam Neck/C-Spine: OTHER: Supple Resp: OTHER: Bilateral breath sounds, sounded clearer to auscultation today, normal chest wall expansion Cardio: OTHER: Normal rate and rhythm without murmurs, gallops, or rubs GI: OTHER: Soft, nondistended, nontender with normal bowel sounds Extremity: OTHER: No cyanosis or edema Data 12/01/23 05:17 12/01/23 05:17 Micro: Microbiology 11/30/23 04:06 Blood Culture - Preliminary Blood NEGATIVE TO DATE 11/30/23 04:04 Blood Culture - Preliminary Blood NEGATIVE TO DATE A&P Assessment and plan (1) Acute hepatic encephalopathy: Patient is more alert and oriented today Patient reported had multiple bowel movements on lactulose 30ml TIB, will decrease to 20ml BID Was on IV fluids 100 ml/hr, will decrease to 50ml/hr Has done well on clear liquid diet, will advance to regular diet-soft Blood and urine cultures still pending Drug screen was clean Was on Tizanidine before admission, will restart due to risk of withdrawal Potassium was 3.3 today, start 40KCl PO Mg was at 1.7 today, lower normal Recheck Mg, CBC, and CMP labs tomorrow (2) Constipation: Patient had mutiple bowel movments yesterday on lactulose Not reported abdominal pain, no pain on palpation Will decreased lactulose to 20ml BID (3) UTI (urinary tract infection): Patient was given IV Rocephin in ED U/A yesterday tested positive for bacteria, RBCs, WBCs, leukocyte esterase, and bilirubin Urine culture still pending Continue IV Zosyn 12.5mg Patient had low grade fevers yesterday (4) Hyperbilirubinemia: Total Bilirubin has decreased to 2.2 with albumin at 3.1 Will get CMP tomorrow to continue to monitor This is likely chronic due to cirrhosis history (5) Pancytopenia: Hgb has decreased to 9.9 today with continued decrease in RBC, WBC, and platelet levels Will continue to monitor as treat acute encephalopathy Recheck CBC tomorrow This is most likely related to her cirrhosis (6) COPD (chronic obstructive pulmonary disease): Patient is currently at O2 Sat 93% on Room Air, continue to monitor for O2 supplementation need continue Nebulizer Albuterol PRN DuoNebs Budesonide 2x Daily (7) Cirrhosis: CBC showed worsening pancytopenia and decreased hgb today CMP showed total bilirubin decreased to 2.2 with albumin at 3.1 Plan Full code Granddaughter is DPOA Coding Level of Care Code 52907 Diagnoses Acute hepatic encephalopathy K76.82 Constipation K59.00 UTI (urinary tract infection) N39.0 Hyperbilirubinemia E80.6 Pancytopenia D61.818 COPD (chronic obstructive pulmonary disease) J44.9 Cirrhosis K74.60 Time Spent (min) 23 Documented by User: Sanjiv Nicolas MD 12/01/23 09:08 Subjective Medications: Reviewed: Yes Data 12/01/23 05:17 12/01/23 05:17 A&P Assessment and plan (1) Acute hepatic encephalopathy: Patient is more alert and oriented today Patient reported had multiple bowel movements on lactulose 30ml TIB, will decrease to 20ml BID Was on IV fluids 100 ml/hr, will decrease to 50ml/hr Has done well on clear liquid diet, will advance to regular diet-soft Blood and urine cultures still pending Drug screen was clean Was on Tizanidine before admission, will restart due to risk of withdrawal Potassium was 3.3 today, start 40KCl PO Mg was at 1.7 today, lower normal Recheck Mg, CBC, and CMP labs tomorrow May transfer to regular floor (2) Constipation: Patient had mutiple bowel movments yesterday on lactulose Not reported abdominal pain, no pain on palpation Will decreased lactulose to 20ml BID. Monitor for at least 2 loose bowel movements per day, continued clarity in her thinking. (3) UTI (urinary tract infection): Patient was given IV Rocephin in ED U/A yesterday tested positive for bacteria, RBCs, WBCs, leukocyte esterase, and bilirubin Urine culture still pending Continue IV Zosyn 12.5mg Patient had Elevated temperatures through the night Await cultures (4) Hyperbilirubinemia: (5) Pancytopenia: (6) COPD (chronic obstructive pulmonary disease): (7) Cirrhosis: Plan Full code Granddaughter is DPOA SCDs for DVT prophylaxis, pharmacologic anticoagulation contraindicated secondary to thrombocytopenia, anemia Attestations Medical Necessity Statement*: Needs continued hospital stay for IV antibiotics secondary to complicated UTI, with fever noted in last 24 hours Diagnoses Acute hepatic encephalopathy K76.82 Constipation K59.00 UTI (urinary tract infection) N39.0 Hyperbilirubinemia E80.6 Pancytopenia D61.818 COPD (chronic obstructive pulmonary disease) J44.9 Cirrhosis K74.60 Time Spent (min) 23
[2023-12-01] MEDS: sodium chloride 0.9% 1,000 ML 50 ML IV (08:43)
[2023-12-01] MEDS: pantoprazole DR 40 mg Tablet PO (08:57)
[2023-12-01] MEDS: potassium chloride oral liq 20 mEq/15 mL UDC 40 MEQ PO (08:57)
--- NOTE | 2023-12-01 14:46 | PC.NURSE ---
report called and transfered to room 259 2
[2023-12-01] MEDS: piperacillin-tazobactam 3.375 GM in sodium chloride 0.9% (plus) 50 ML 1.5 GM IV (17:59)
[2023-12-01] MEDS: lactulose oral liq 20 gm/30 mL UDC PO (17:59)
[2023-12-01] MEDS: iohexol 350 mg/mL 500 mL Btl (per mL) IV (18:10)
[2023-12-02] VITALS (10 sets, daily range): BP systolic 104–166; BP diastolic 61–70; PULSE 74–95; RESP 15–21; TEMP 36.6–37; O2SAT 90–97
[2023-12-02] MEDS: sodium chloride 0.9% 1,000 ML 50 ML IV (02:49)
[2023-12-02] MEDS: tizanidine 4 mg Tablet 2 MG PO ×2 (02:51→19:26)
[2023-12-02] MEDS: piperacillin-tazobactam 3.375 GM in sodium chloride 0.9% (plus) 50 ML IV ×3 (03:19→17:39)
[2023-12-02 05:06] LABS: Basophils % 0.3 %; Eosinophils # 0.2 10^3/uL (0.0-0.8); Eosinophils % 6.8 %; Hematocrit 25.7 % (36-47); Lymphocytes # 0.9 10^3/uL (0.8-4.8); Mean Corpuscular Hemoglobin 35.2 pg (27-33); Mean Corpuscular Volume 100.4 fl (85-98); Mean Platelet Volume 9.5 fL (7.4-10.4); Monocytes # 0.3 10^3/uL (0.2-0.9); Monocytes % 11.3 %; Neutrophils # 1.53 10^3/uL (1.8-7.7); Neutrophils % 52.3 %; Nucleated Red Blood Cells % 0 %; Platelet Count 56 10^3/cmm (157-399); Red Blood Count 2.56 10^6/uL (3.85-5.65); Red Cell Distribution Width 14.1 % (12.1-15.1); White Blood Count 2.93 10^3/uL (3.29-11.43)
[2023-12-02 05:32] LABS: Alanine Aminotransferase 11 U/L (0-33); Alkaline Phosphatase 41 U/L (35-105); Anion Gap 11.5 (5-19); Aspartate Amino Transferase 26 U/L (0-32); Blood Urea Nitrogen 7 mg/dL (8-23); Calcium 8.6 mg/dL (8.5-10.5); Carbon Dioxide 20 mmol/L (22-29); Chloride 113 mmol/L (98-107); Glucose 100 mg/dL (65-115); Magnesium 1.6 mg/dL (1.7-2.3); Osmolality Calculated 290 mOsm/kg (285-295); Potassium 3.5 mmol/L (3.5-5.1); Sodium 141 mmol/L (136-145); Total Bilirubin 1.6 mg/dL (0.15-1.2)
[2023-12-02] MEDS: lactulose oral liq 20 gm/30 mL UDC PO ×2 (06:12→17:39)
--- NOTE | 2023-12-02 07:46 | USCV_ITS ---
Vaishali Mendez Age: 73 Gender: F : 1950 Exam Date: 12/02/2023 09:57 Ordering Phys: Sanjiv Nicolas MD Technologist: [place] [facility] [place] Indication: sob BP: / HR: 79 Rhythm: Sinus Technical Quality: Adequate MEASUREMENTS (Male / Female) Normal Values 2D ECHO LVOT Diameter 2.0 cm LV Ejection Fraction MOD 4C 58.8 % LV Ejection Fraction MOD 2C 67.1 % LV Ejection Fraction 2C AL 68.1 % LA Diameter 3.9 cm RA Systolic Volume 4C AL 38.4 ml RA Systolic Volume 4C MOD 35.5 ml LA Sys Volume AL 72.1 cm cubed LA Sys Volume Index AL 45.6 cm cubed/m squared Aorta at Sinotubular Diameter 2.3 cm IVC Diameter 2.1 cm M-MODE LA Ao Ratio MM 1.6 AV Cusp Separation MM 2.1 cm DOPPLER AV Peak Velocity 175.0 cm/s LVOT Peak Velocity 114.0 cm/s AV Area Cont Eq vti 2.6 cm squared AV Area Cont Eq pk 2.2 cm squared MV Peak Velocity 121.0 cm/s MV Area PHT 3.5 cm squared TR Peak Velocity 290.0 cm/s TR Peak Gradient 33.6 mmHg TV Peak E Velocity 78.0 cm/s Right Atrial Pressure 3.0 mmHg Pulmonary Artery Systolic Pressu 36.6 mmHg PV Peak Velocity 125.0 cm/s FINDINGS Left Ventricle Left ventricle is normal in size. LV systolic function is normal with EF of 55 to 60%. No regional wall motion abnormalities are seen. Grade 1 diastolic dysfunction. Right Ventricle Normal in size and function. Right Atrium Normal in size Left Atrium Dilated Mitral Valve Structurally normal mitral valve. Mild mitral regurgitation. Aortic Valve Aortic valve is thickened. No significant stenosis. Tricuspid Valve Mild tricuspid regurgitation. RVSP is 35-40mmHg. This is consistent with mild pulmonary hypertension. Pulmonic Valve Not well visualized Pericardium Normal Aorta Normal in size IVC Appears to be dilated CONCLUSIONS LV systolic function is normal with EF of 55-60% Grade 1 diastolic dysfunction Left atrial dilation Mild mitral regurgitation Mild tricuspid regurgitation Mild pulmonary hypertension IVC appears to be dilated. No comparions studies are available. Nicolas Allred MD (Electronically Signed) Final Date: 02 December 2023 11:58 S
--- NOTE | 2023-12-02 07:46 | ECG_ITS ---
[facility] Test Date: 2023-12-02 Pat Name: Vaishali Mendez Department: Room: 259 Gender: Female Manager Reading: : 1950 Requested By: Sanjiv Whitaker Order Number: [id number] Javier MD: Cindy Mora M.D. Measurements Intervals [place] Rate: 72 P: 45 MI: 168 QRS: 29 QRSD: 114 T: 31 QT: 404 QTc: 444 Interpretive Statements SINUS RHYTHM MODERATE INTRAVENTRICULAR CONDUCTION DELAY [110+ ms QRS DURATION] NONSPECIFIC T-WAVE ABNORMALITY No previous ECG available for comparison Electronically Signed On 12-02-2023 20:23:07 CDT by Cindy Mora M.D. [email or web address] hospitalHarbinger Medical/[id number]
[2023-12-02 08:35] LABS: Troponin(5th) Baseline 15 ng/L (0-10)
--- NOTE | 2023-12-02 09:05 | P.PN_ITS ---
Documented by User: LEX Salter STD 12/02/23 10:22 Subjective 2 Subjective: Patient is feeling worse this morning. She endorses SOB, worsening of thinking, burping, chest discomfort/pressure in the middle of her chest, diffuse extremity pain/aches. Patient's O2 sat was around 88-90% on RA when seen, will put on O2. Evaluating the cause of the chest pain and worsening O2 sat, possibly diastolic heart failure. Vitals/I&O/Wt Last Vital Signs Temp 98.2 F 12/02/23 07:19 Pulse 74 12/02/23 07:19 Resp 15 12/02/23 07:19 BP 106/61 12/02/23 07:19 Pulse Ox 90 12/02/23 07:19 O2 Del Method Room Air 12/02/23 07:19 O2 Flow Rate 3 12/02/23 04:00 12/01/23 12/02/23 12/02/23 22:59 06:59 14:59 Intake Total 1666.667 / 3615.000 1265 / 4880.000 662.167 / 662.167 Balance 1666.667 / 2365.000 1265 / 3630.000 662.167 / 662.167 Weight last 48 hrs Weight 127 lb 12.8 oz Weight 127 lb 13.89 oz Weight 128 lb 15.527 oz Physical Exam 2 Neck/C-Spine: OTHER: Supple Resp: OTHER: Bilateral crackles, increased effort of breathing Cardio: OTHER: Normal rate and rhythm without murmurs, gallops, or rubs GI: OTHER: No abdominal pain, soft, nondistended, nontender Extremity: OTHER: No edema or cyanosis Data 12/02/23 04:39 12/02/23 04:39 Micro: Microbiology 11/30/23 09:10 Urine Culture - Preliminary Urine,Clean Catch 11/30/23 04:06 Blood Culture - Preliminary Blood NEGATIVE TO DATE 11/30/23 04:04 Blood Culture - Preliminary Blood NEGATIVE TO DATE A&P Assessment and plan (1) Acute diastolic (congestive) heart failure: Patient is having chest discomfort, SOB with crackles on exam; suspecting diastolic heart failure Patient has borderline hypoxia, start on 2L O2 Start patient on Lasix 40mg IVP q24hrs EKG showed sinus rhythm with moderate conduction delay Echo ordered BNP was 334 Troponin was 15 (2) Acute hepatic encephalopathy: Patient was transferred to regular floor Patient is alert, but is having chest pain and increased effort of breathing Stopped fluids, start Lasix 40mg IVP q24hrs Blood and urine cultures have not grown organisms in 18-24 hours\ Continue Tizanidine to prevent risk of withdrawal Potassium was 3.5 today after giving KCl PO yesterday Mg was at 1.6 today, give 2g in 50ml IV CTA done yesterday due to patient having blood streaked sputum showed no PE, acute lung findings, or masses. Recheck Mg, CBC, and CMP labs tomorrow (3) Constipation: Patient has continued to have mutiple bowel movments on lactulose Not reported abdominal pain, no pain on palpation Continue lactulose 20ml BID (4) UTI (urinary tract infection): Urine cultures have not grown any organisms to date. Continue IV Zosyn 12.5mg Patient had low grade fevers 11/29 (5) Hyperbilirubinemia: Total Bilirubin has decreased to 2.2 with albumin at 3.1 Will get CMP tomorrow to continue to monitor This is likely chronic due to cirrhosis history (6) Pancytopenia: Hgb has decreased to 9 today with continued decrease in RBC and platelet levels, WBCs have increased Will continue to monitor as treat acute encephalopathy Recheck CBC tomorrow This is most likely related to her cirrhosis (7) Cirrhosis: CBC showed worsening pancytopenia and decreased hgb today CMP showed total bilirubin decreased to 2.2 with albumin at 3.1 (8) COPD (chronic obstructive pulmonary disease): Patient was borderline hypoxic this morning, start on 2L O2 Continue DuoNebs PRN Continue Budesonide 2x Daily Plan Full code Granddaughter is DPOA SCDs for DVT prophylaxis, pharmacologic anticoagulation contraindicated secondary to thrombocytopenia, anemia Coding Level of Care Code 63633 Diagnoses Acute diastolic (congestive) heart failure I50.31 Acute hepatic encephalopathy K76.82 Constipation K59.00 UTI (urinary tract infection) N39.0 Hyperbilirubinemia E80.6 Pancytopenia D61.818 Cirrhosis K74.60 COPD (chronic obstructive pulmonary disease) J44.9 Time Spent (min) 24 Documented by User: Sanjiv Nicolas MD 12/02/23 10:32 Subjective 2 Medications: Reviewed: Yes Data 12/02/23 04:39 12/02/23 04:39 A&P Assessment and plan (1) Acute diastolic (congestive) heart failure: Patient is having chest discomfort, SOB with crackles on exam; suspecting diastolic heart failure Patient has borderline hypoxia, start on 2L O2 Discontinue IV fluids Start patient on Lasix 40mg IVP q24hrs EKG showed sinus rhythm with moderate conduction delay Echo ordered BNP was 334 Troponin was 15 BMP tomorrow (2) Acute hepatic encephalopathy: Patient was transferred to regular floor Patient is alert, but is having chest pain and increased effort of breathing Stopped fluids, start Lasix 40mg IVP q24hrs Blood and urine cultures have not grown organisms in 18-24 hours\ Continue Tizanidine to prevent risk of withdrawal Potassium was 3.5 today after giving KCl PO yesterday Hypomagnesemia. Mg was at 1.6 today, give 2g in 50ml IV CTA done yesterday due to patient having blood streaked sputum showed no PE, acute lung findings, or masses. Recheck Mg, CBC, and CMP labs tomorrow (3) Constipation: (4) UTI (urinary tract infection): (5) Hyperbilirubinemia: (6) Pancytopenia: (7) Cirrhosis: (8) COPD (chronic obstructive pulmonary disease): Patient was borderline hypoxic this morning, start on 2L O2. Wean as tolerated Continue DuoNebs PRN Continue Budesonide 2x Daily Attestations 2 Medical Necessity Statement*: Needs continued hospitalization for treatment of acute diastolic heart failure, evaluation with troponins and echocardiogram. Diagnoses Acute diastolic (congestive) heart failure I50.31 Acute hepatic encephalopathy K76.82 Constipation K59.00 UTI (urinary tract infection) N39.0 Hyperbilirubinemia E80.6 Pancytopenia D61.818 Cirrhosis K74.60 COPD (chronic obstructive pulmonary disease) J44.9 Time Spent (min) 24
[2023-12-02 09:14] LABS: NT Pro B Type Natriuretic Pept 334 pg/mL (0-125)
[2023-12-02] MEDS: magnesium sulfate premix 2 GM/50 ML PIGGYBACK IV (09:14)
[2023-12-02] MEDS: potassium chloride oral liq 20 mEq/15 mL UDC 40 MEQ PO (09:14)
[2023-12-02] MEDS: pantoprazole DR 40 mg Tablet PO (09:14)
[2023-12-02] MEDS: FUROsemide 10 mg/mL SDV 4mL 40 MG IVP (09:14)
[2023-12-02] MEDS: ipratropium-albuterol 3 mL Neb INHALATION ×2 (09:16→20:42)
[2023-12-02] MEDS: budesonide 0.5 mg/2 mL Neb INHALATION ×2 (09:16→20:43)
--- NOTE | 2023-12-02 09:46 | ECG_ITS ---
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 Measurements Intervals [place] Rate: 75 P: 47 MS: 163 QRS: 39 QRSD: 104 T: 46 QT: 403 QTc: 450 Interpretive Statements SINUS RHYTHM Compared to ECG 12/02/2023 08:29:25 Intraventricular conduction delay no longer present T-wave abnormality no longer present Electronically Signed On 12-02-2023 20:29:11 CDT by Cindy Mora M.D. [id number]
[2023-12-02 11:46] LABS: Troponin 5 2HR 13.38 ng/L (0-10)
[2023-12-02 11:47] LABS: Troponin 5 2HR Delta -1.62 ABS# (0-10)
--- NOTE | 2023-12-02 11:52 | PC.SOCIAL ---
IMM Update pg 2 of IMM updated and reviewed w/ patient. Copy provided and copy dated, initialed and placed in chart.
--- NOTE | 2023-12-02 13:59 | ECG_ITS ---
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 Measurements Intervals [place] Rate: 82 P: 65 [place]: 164 QRS: 36 QRSD: 109 T: 54 QT: 393 QTc: 460 Interpretive Statements SINUS RHYTHM Compared to ECG 12/02/2023 09:50:07 No significant changes Electronically Signed On 12-02-2023 20:27:09 CDT by Cindy Mora M.D. [id number]
[2023-12-02 14:34] LABS: Troponin 5 6HR 13.05 ng/L (0-10)
[2023-12-02 14:36] LABS: Troponin 5 6HR Delta -1.95 ng/L (0-12)
[2023-12-03] VITALS: BP 102/54; PULSE 77; RESP 21; TEMP 36.9; O2SAT 93
[2023-12-03] MEDS: piperacillin-tazobactam 3.375 GM in sodium chloride 0.9% (plus) 50 ML IV (02:57)
[2023-12-03 04:00] VITALS: BP 104/61; PULSE 64; RESP 23; TEMP 36.6; O2SAT 94
[2023-12-03 05:11] LABS: Basophils % 0.6 %; Eosinophils # 0.3 10^3/uL (0.0-0.8); Eosinophils % 8.6 %; Hematocrit 27.8 % (36-47); Lymphocytes # 0.8 10^3/uL (0.8-4.8); Lymphocytes % 26.8 %; Mean Corpuscular HGB Conc 34.5 g/dL (30-55); Mean Corpuscular Hemoglobin 35.2 pg (27-33); Mean Corpuscular Volume 101.8 fl (85-98); Mean Platelet Volume 10.2 fL (7.4-10.4); Monocytes # 0.3 10^3/uL (0.2-0.9); Monocytes % 9.2 %; Neutrophils # 1.71 10^3/uL (1.8-7.7); Neutrophils % 54.5 %; Nucleated Red Blood Cells % 0 %; Platelet Count 75 10^3/cmm (157-399); Red Blood Count 2.73 10^6/uL (3.85-5.65); Red Cell Distribution Width 14.4 % (12.1-15.1); White Blood Count 3.14 10^3/uL (3.29-11.43)
[2023-12-03 05:29] LABS: Alanine Aminotransferase 12 U/L (0-33); Alkaline Phosphatase 40 U/L (35-105); Anion Gap 11.7 (5-19); Aspartate Amino Transferase 22 U/L (0-32); Blood Urea Nitrogen 9 mg/dL (8-23); Calcium 8.5 mg/dL (8.5-10.5); Carbon Dioxide 23 mmol/L (22-29); Chloride 104 mmol/L (98-107); Creatinine Clr Calc Pharmacy 54.1717; Globulin 2.3 g/dL (1.3-4.6); Glucose 93 mg/dL (65-115); Magnesium 2.1 mg/dL (1.7-2.3); Osmolality Calculated 278 mOsm/kg (285-295); Potassium 3.7 mmol/L (3.5-5.1); Sodium 135 mmol/L (136-145); Total Bilirubin 1.7 mg/dL (0.15-1.2); Total Protein 5.3 g/dL (6.6-8.7)
[2023-12-03 07:56] VITALS: BP 119/56; PULSE 62; RESP 17; TEMP 36.8; O2SAT 93
[2023-12-03 08:23] VITALS: PULSE 77; RESP 20; O2SAT 90
[2023-12-03] MEDS: ipratropium-albuterol 3 mL Neb INHALATION (08:23)
[2023-12-03] MEDS: budesonide 0.5 mg/2 mL Neb INHALATION (08:23)
[2023-12-03] MEDS: potassium chloride oral liq 20 mEq/15 mL UDC 40 MEQ PO (09:23)
[2023-12-03] MEDS: FUROsemide 10 mg/mL SDV 4mL 40 MG IVP (09:23)
[2023-12-03] MEDS: pantoprazole DR 40 mg Tablet PO (09:23)
--- NOTE | 2023-12-03 09:55 | PM.DCS ---
Discharge Providers Date of Admission: 11/30/23 09:15 Date of Discharge: December 03, 2023 Attending Provider at Admission: Sanjiv Nicolas MD Attending Provider at Discharge: Wenceslao Mayorga MD Primary Care Provider: Leena Jones Diagnoses at Discharge Discharge Diagnosis (1) Acute diastolic (congestive) heart failure: Status: Acute (2) Acute hepatic encephalopathy: Status: Acute (3) Constipation: Status: Acute (4) UTI (urinary tract infection): Status: Acute (5) Hyperbilirubinemia: Status: Acute (6) Pancytopenia: Status: Acute (7) Cirrhosis: Status: Acute (8) COPD (chronic obstructive pulmonary disease): Status: Acute Reason for Visit Reason for Visit: fever ams Hospital Course Hospital Course Vaishali Mendez is a 73 year old female with PMH of COPD, Colon cancer, GERD, cirrhosis with Hep C diagnosis and TIPs placement 6 months ago representing with confusion, constipation, shaking, chills, high ammonia levels, high BP, and history of fever; found to have acute hepatic encephalopathy and acute complicated urinary tract infection. She was treated with lactulose and IV antibiotics. Mentation returned to baseline. She was found to have fluid overload state following IV fluids for which she was started on diuresis and echocardiogram obtained revealing acute diastolic heart failure exacerbation. Patient symptomatology resolved. 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 She was transition to oral antibiotics for her UTI. She was started on daily Lasix both for her liver cirrhosis as well as her diastolic congestive heart failure. She was not started on a beta-hilario due to recent exacerbation and high risk worsening congestive heart failure symptoms given recent exacerbation. She will follow-up with her PCP within 1 week for consideration of initiation of beta-hilario after she has had time for further diuresis. Patient discharged to home with family in stable condition. Physical Exam Narrative: General: Patient is awake and alert. Conversational. Head: Normocephalic. Atraumatic. EOM intact. Neck: No JVD. Cardiovascular: RRR. No gallops. No murmurs. Lungs: Clear to auscultation, no use of accessory muscles, no crackles or wheezes. Skin: No jaundice. No rashes. Abdomen: Normal bowel sounds, abdomen soft and nontender. Extremities: No cyanosis or clubbing. Musculoskeletal: No swollen or erythematous joints. Neurological: Moves all 4 extremities. No myoclonus. Discharge Data Studies Completed and Pending Completed Studies During Hospitalization Category Date Time Status CT abdomen pelvis w con* [id number] Stat Cat Scan 11/30/23 04:[address] head wo con* [id number] Stat Cat Scan 11/30/23 03:58 Completed CTA chest [CT angio chest PE protcl [id number]] Routine Cat Scan 12/01/23 07:16 Completed XR chest 1V portable [id number] Stat Exams 11/30/23 03:47 Completed CV. echo complete* [id number] Routine Ultrasound 12/02/23 07:46 Completed Pending at discharge Category Date Time Status Blood Culture Stat Lab 11/30/23 04:06 Results Radiology Impressions Chest X-Ray 11/30/23 03:47 IMPRESSION: No acute findings. Head CT 11/30/23 03:58 IMPRESSION: 1. No acute intracranial findings. 2. Scattered white matter disease, likely secondary to chronic microvascular change. 3. Incidental findings as above. Abdomen/Pelvis CT 11/30/23 04:52 IMPRESSION: 1. Severe colonic stool burden, correlate with constipation. 2. Otherwise, no acute abdominal findings. 3. Findings compatible with cirrhosis and portal hypertension, status post tips (difficult to comment on the patency of the shunt). COMMENTS: Consistent with the [employer]'s Incidental Findings Committee white paper (J Am [place]iol 2018): Any incidental renal lesion less than 1 cm or classified as too small to characterize, or any incidental cystic renal lesion characterized as simple-appearing, is likely benign. No follow-up imaging is recommended for these lesions per consensus recommendations based on imaging criteria. Chest CTA 12/01/23 07:16 IMPRESSION: 1. No evidence of pulmonary embolus. 2. No acute pulmonary findings. 3. Cirrhotic liver with portal venous hypertension. 4. Splenomegaly. COMMENTS: 1. Consistent with the [employer]'s Incidental Findings Committee white paper (J Am [employer]iol 2018): Any incidental renal lesion less than 1 cm or classified as too small to characterize, or any incidental cystic renal lesion characterized as simple-appearing, is likely benign. No follow-up imaging is recommended for these lesions per consensus recommendations based on imaging criteria. 2. The presence of pulmonary emphysema on CT is an independent risk factor for lung cancer. In the absence of a history or active diagnosis of lung cancer, it is recommended that this patient with emphysema be evaluated for enrollment in a low dose CT lung cancer screening program. Laboratory Results WBC 3.14 10^3/uL (3.29-11.43) L 12/03/23 04:50 RBC 2.73 10^6/uL (3.85-5.65) L 12/03/23 04:50 Hgb 9.60 g/dL (11.27-16.99) L 12/03/23 04:50 Hct 27.8 % (36-47) L 12/03/23 04:50 MCV 101.8 fl (85-98) H 12/03/23 04:50 MCH 35.2 pg (27-33) H 12/03/23 04:50 MCHC 34.5 g/dL (30-55) 12/03/23 04:50 RDW 14.4 % (12.1-15.1) 12/03/23 04:50 Plt Count 75 10^3/cmm (157-399) L D 12/03/23 04:50 MPV 10.2 fL (7.4-10.4) 12/03/23 04:50 Neut % (Auto) 54.5 % 12/03/23 04:50 Lymph % (Auto) 26.8 % 12/03/23 04:50 [place] % (Auto) 9.2 % 12/03/23 04:50 Eos % (Auto) 8.6 % 12/03/23 04:50 Baso % (Auto) 0.6 % 12/03/23 04:50 Neut # (Auto) 1.71 10^3/uL (1.8-7.7) L 12/03/23 04:50 Lymph # (Auto) 0.8 10^3/uL (0.8-4.8) 12/03/23 04:50 [place] # (Auto) 0.3 10^3/uL (0.2-0.9) 12/03/23 04:50 Eos # (Auto) 0.3 10^3/uL (0.0-0.8) 12/03/23 04:50 Baso # (Auto) 0.0 10^3/uL (0.0-0.1) 12/03/23 04:50 Nucleated RBC % (auto) 0 % 12/03/23 04:50 Nucleated RBCs # 0.0 /100WBC 12/03/23 04:50 Specimen Type Arterial 11/30/23 04:04 Sample Site Radial, right 11/30/23 04:04 ABG pH 7.45 (7.35-7.45) 11/30/23 04:04 ABG pCO2 27.8 mmHg (35-45) L 11/30/23 04:04 ABG pO2 68.5 mmHg (80.0-100.0) L 11/30/23 04:04 ABG HCO3 19.5 mmol/L (22-26) L 11/30/23 04:04 ABG O2 Saturation 95.2 11/30/23 04:04 ABG Base Excess -3.2 mmol/L (-2.0-2.0) L 11/30/23 04:04 [place] Test Pos 11/30/23 04:04 A-a O2 Gradient 5.9 mmHg (5-10) 11/30/23 04:04 Hematocrit 37.6 % (37-47) 11/30/23 04:04 Hgb O2 Saturation 93.3 % (95-100) L 11/30/23 04:04 Carboxyhemoglobin 2.0 %THgb (0.4-20.1) 11/30/23 04:04 Methemoglobin 0.0 % (0.4-1.5) L 11/30/23 04:04 Total Hemoglobin 12.3 g/dL (12-16) 11/30/23 04:04 Sodium 147.0 mmol/L (131-143) H 11/30/23 04:04 Potassium 4.0 mmol/L (3.5-5.0) 11/30/23 04:04 Glucose 109.0 mg/dL (70-115) 11/30/23 04:04 Ionized Calcium 1.3 mmol/L (1.1-1.4) 11/30/23 04:04 O2 Delivery Device None 11/30/23 04:04 Cable Installation Technician ID Cl 11/30/23 04:04 Sodium 135 mmol/L (136-145) L 12/03/23 04:50 Potassium 3.7 mmol/L (3.5-5.1) 12/03/23 04:50 Chloride 104 mmol/L (98-107) 12/03/23 04:50 Carbon Dioxide 23 mmol/L (22-29) 12/03/23 04:50 Anion Gap 11.7 (5-19) 12/03/23 04:50 BUN 9 mg/dL (8-23) 12/03/23 04:50 Creatinine 0.6 mg/dL (0.5-0.9) 12/03/23 04:50 GFR Calculation Not Reportable 12/03/23 04:50 Glucose 93 mg/dL (65-115) 12/03/23 04:50 Calculated Osmolality 278 mOsm/kg (285-295) L 12/03/23 04:50 Lactic Acid 1.7 mmol/L (0.5-2.2) 11/30/23 04:06 Calcium 8.5 mg/dL (8.5-10.5) 12/03/23 04:50 Magnesium 2.1 mg/dL (1.7-2.3) 12/03/23 04:50 Total Bilirubin 1.7 mg/dL (0.15-1.2) H 12/03/23 04:50 AST 22 U/L (0-32) 12/03/23 04:50 ALT 12 U/L (0-33) 12/03/23 04:50 Alkaline Phosphatase 40 U/L (35-105) 12/03/23 04:50 Ammonia 141 umol/L (11-51) H 11/30/23 07:11 Troponin T Baseline 15 ng/L (0-10) H 12/02/23 07:58 Troponin T 120 Minute 13.38 ng/L (0-10) H 12/02/23 11:04 Delta Troponin T -1.62 ABS# (0-10) L 12/02/23 11:04 Troponin T Hi Sens 6Hr 13.05 ng/L (0-10) H 12/02/23 13:55 Troponin T Hi Sens 6Hr Delta -1.95 ng/L (0-12) L 12/02/23 13:55 C-Reactive Protein 3.0 mg/L (0.0-4.9) 11/30/23 04:06 NT-Pro-B Natriuret Pep 334 pg/mL (0-125) H 12/02/23 07:58 Total Protein 5.3 g/dL (6.6-8.7) L 12/03/23 04:50 Albumin 3.0 g/dL (3.5-5.2) L 12/03/23 04:50 Globulin 2.3 g/dL (1.3-4.6) 12/03/23 04:50 Lipase 41 U/L (13-60) 11/30/23 04:06 Vitamin B12 494 pg/mL (232-1245) 11/30/23 04:06 Folate 15.7 ng/mL (4.8-37.3) 11/30/23 04:06 Procalcitonin 0.07 ng/mL (0-0.5) 11/30/23 04:06 TSH 3.97 uIU/mL (0.27-4.20) 11/30/23 04:06 Urine Color Dark yellow (Yellow) A 11/30/23 04:18 Urine Appearance Cloudy (CLEAR) A 11/30/23 04:18 Urine pH 7.5 (5-7) 11/30/23 04:18 Ur Specific [place] 1.025 (1.005-1.030) 11/30/23 04:18 Urine Protein Trace (Negative) A 11/30/23 04:18 Urine Glucose (UA) Negative (Normal) 11/30/23 04:18 Urine Ketones Trace (Negative) 11/30/23 04:18 Urine Blood Negative (Negative) 11/30/23 04:18 Urine Nitrate Negative (Negative) 11/30/23 04:18 Urine Bilirubin 1+ (Negative) H 11/30/23 04:18 Urine Urobilinogen 4.0 mg/dL (Negative) H 11/30/23 04:18 Ur Leukocyte Esterase 1+ (Negative) A 11/30/23 04:18 Urine RBC 11-20 /hpf (0-2) H 11/30/23 04:18 Urine WBC 21-50 /hpf (0-5) H 11/30/23 04:18 Ur Squamous Epith Cells 11-20 /hpf (0-5) 11/30/23 04:18 Amorphous Sediment Not Reportable 11/30/23 04:18 Urine Bacteria 2+ /hpf (NONE) H 11/30/23 04:18 Hyaline Casts 2.46 /lpf 11/30/23 04:18 Urine Opiates Screen Negative ng/mL (Negative) 11/30/23 09:10 Ur Barbiturates Screen Negative ng/mL (Negative) 11/30/23 09:10 Ur Phencyclidine Scrn Negative ng/mL (Negative) 11/30/23 09:10 Ur Amphetamines Screen Negative ng/mL (Negative) 11/30/23 09:10 U Benzodiazepines Scrn Negative ng/mL (Negative) 11/30/23 09:10 Urine Cocaine Screen Negative ng/mL (Negative) 11/30/23 09:10 U Marijuana (THC) Screen Negative ng/mL (Negative) 11/30/23 09:10 Coronavirus (PCR) Negative (Negative) 11/30/23 04:06 Influenza A (PCR) Negative (Negative) 11/30/23 04:06 Influenza Type B (PCR) Negative (Negative) 11/30/23 04:06 RSV (PCR) Negative (Negative) 11/30/23 04:06 Vitals Last Vital Signs Temp 98.2 F 12/03/23 07:56 Pulse 77 12/03/23 08:23 Resp 20 H 12/03/23 08:23 BP 119/56 12/03/23 07:56 Pulse Ox 90 12/03/23 08:23 O2 Del Method Room Air 12/03/23 08:23 O2 Flow Rate 2 12/02/23 08:00 Discharge Plan Discharge Patient Disposition: Home Condition: Stable Prescriptions: New lactulose 20 gram/30 mL Solution 20 g PO DAILY 30 Days Qty: 1800 1RF cefdinir 300 mg capsule 300 mg PO BID 7 Days Qty: 14 0RF Lasix 40 mg tablet 40 mg PO DAILY Qty: 30 1RF potassium chloride 10 mEq capsule, extended release 10 meq PO DAILY Qty: 30 1RF Continued esomeprazole magnesium 40 mg Capsule,Delayed Release(Dr/Ec) 40 mg PO DAILY 30 Days Qty: 30 1RF albuterol sulfate 90 mcg/actuation HFA aerosol inhaler 90 mcg INHALATION PRN 30 Days Qty: 1 1RF Changed tizanidine 2 mg Tablet 2 mg PO TID PRN (Reason: MUSCLE SPAMS) 30 Days Qty: 90 0RF Discharge Orders: Discharge Order (Routine); Ordered 12/03/23 Ordered By: Wenceslao Mayorga Referrals: Arya Cullen MD [Referring] - 1 week (We have notified your physician's clinic of the need for a follow-up appointment to be scheduled. If you have not heard from them within the next 2 business days, please call them directly. SENT REFERRAL) Discharge Diet: Advance as tolerated, Usual diet and Low Salt Discharge Activity: Resume usual activity and Increase activity as tolerated Patient Instructions: Furosemide (By mouth), Potassium Chloride (By mouth), Lactulose (By mouth), Cefdinir (By mouth) (Omnicef), Urinary Tract Infection in Women (DC), Opioid Safety Activity Restrictions/Additional Instructions: 1. Take medications as prescribed. 2. Recommend follow-up with gastroenterology for management of liver cirrhosis. 3. Recommend PCP follow-up within 1 week. 4. Avoid hepatotoxins. 5. Increase activity as tolerated. Discharge Attestations Time Spent in Discharge Care*: greater than 30 min Quality Metrics Clinical Quality Measures [ No reported AMI, CVA or VTE this stay] Coding Level of Care Code Acute Code for Chg Fwd Diagnoses Acute diastolic (congestive) heart failure I50.31 Acute hepatic encephalopathy K76.82 Constipation K59.00 UTI (urinary tract infection) N39.0 Hyperbilirubinemia E80.6 Pancytopenia D61.818 Cirrhosis K74.60 COPD (chronic obstructive pulmonary disease) J44.9
[2023-12-03 15:36] VITALS: PULSE 77; RESP 20; O2SAT 90
== END 2023-12-03 15:20 | disposition home or self-care (01) | DRG 441 ==
LOC: ER 09:10 → ICU 09:17 → MEDSURG 12-01 14:27
PROVIDERS: Emergency Medicine; Admitting Provider Internal Medicine; Emergency Provider Family Medicine; PCP Internal Medicine; Visit Provider Internal Medicine
DX: K76.82 Hepatic encephalopathy (principal); I50.33 Acute on chronic diastolic (congestive) heart failure; D61.818 Other pancytopenia; N39.0 Urinary tract infection, site not specified; K59.00 Constipation, unspecified; E80.6 Other disorders of bilirubin metabolism; J44.9 Chronic obstructive pulmonary disease, unspecified; K74.60 Unspecified cirrhosis of liver; K21.9 Gastro-esophageal reflux disease without esophagitis; Z85.038 Personal history of other malignant neoplasm of large intestine; Z79.899 Other long term (current) drug therapy; Z87.891 Personal history of nicotine dependence
CPT/HCPCS: 0241U; 36415; 36600; 70450; 71045; 71275; 74177; 80051; 80053; 80306; 81001; 82140; 82330; 82607; 82746; 82805; 83605; 83690; 83735; 83880; 84145; 84443; 84484; 85025; 86140; 87040; 87086; 93005; 93306; 94640; 96361; 96374; 96375; 96376; 99285; J0696; J1940; J2405; J2543; J3475; J7030; J7626